=== PATIENT | female | born 1970 | race Caucasian/White ===

== ENCOUNTER → 2020-02-22 10:06 | Outpatient (CLI) | payer BC, SELFPAY ==
--- NOTE | ~2020-02-22 | MM_ITS ---
EXAMINATION: MM screening [facility] BI w cristin HISTORY: Screening mammogram TECHNIQUE: Craniocaudal and mediolateral oblique 3-D tomosynthesis images were obtained and synthetic 2-D images were generated. CAD analysis was submitted and interpreted. COMPARISON: 11/27/2018, 08/13/2017, 07/29/2017, 07/20/2015, 05/24/2013 BREAST PARENCHYMAL COMPOSITION: The breasts are extremely dense, which lowers the sensitivity of mamm ography. FINDINGS: Scattered benign-appearing calcifications are present. There is no evidence of suspicious m ass, calcification, or architectural distortion to suggest malignancy in either breast. There has bee n no suspicious interval change. IMPRESSION: 1. No mammographic evidence of malignancy. 2. Recommend routine screening mammography in one year. BI-RADS Category 2: Benign finding(s). Reviewed, dictated and finalized at location A.
== END ==
PROVIDERS: Visit Provider Obstetrics & Gynecology
DX: Z12.31 Encounter for screening mammogram for malignant neoplasm of breast (principal)
CPT/HCPCS: 77063; 77067

== ENCOUNTER → 2021-03-29 13:14 | Outpatient (CLI) | payer BC, SELFPAY ==
--- NOTE | ~2021-03-29 | MM_ITS ---
EXAMINATION: MM screening [facility] BI w cristin HISTORY: Screening mammogram TECHNIQUE: Craniocaudal and mediolateral oblique 3-D tomosynthesis images were obtained and synthetic 2-D images were generated. CAD analysis was submitted and interpreted. COMPARISON: 02/22/2020, 11/27/2018, 08/13/2017 BREAST PARENCHYMAL COMPOSITION: The breasts are extremely dense, which lowers the sensitivity of mamm ography. FINDINGS: Scattered benign-appearing calcifications are present. There is no evidence of suspicious m ass, calcification, or architectural distortion to suggest malignancy in either breast. There has bee n no suspicious interval change. IMPRESSION: 1. No mammographic evidence of malignancy. 2. Recommend routine screening mammography in one year. BI-RADS Category 2: Benign finding(s). Reviewed, dictated and finalized at location A.
== END ==
PROVIDERS: Visit Provider Obstetrics & Gynecology
DX: Z12.31 Encounter for screening mammogram for malignant neoplasm of breast (principal)
CPT/HCPCS: 77063; 77067

== ENCOUNTER → 2021-05-01 11:46 | Outpatient (CLI) | payer BC, SELFPAY ==
--- NOTE | ~2021-05-01 | XR_ITS ---
XR chest 2V 05/01/2021 12:03 Indication: Pneumonia Procedure: 2 view chest Comparison: 10/03/2012 Findings: There are infiltrates of the right mid and lower lung zone. Heart size normal. No significa nt effusion, edema or pneumothorax. The lungs are hyperinflated which is consistent with, but not shabnam gnostic of chronic obstructive pulmonary disease. Impression: 1: Infiltrates of the right mid and lower lung zone, compatible with pneumonia. Reviewed, dictated and finalized at location A. Impression: 1: Infiltrates of the right mid and lower lung zone, compatible with pneumonia.
== END ==
PROVIDERS: PCP Internal Medicine; Visit Provider Internal Medicine
DX: J18.9 Pneumonia, unspecified organism (principal)
CPT/HCPCS: 71046

== ENCOUNTER 2021-10-04 12:46 | Outpatient (CLI) | payer BC, SELFPAY ==
--- NOTE | ~2021-10-04 | US_ITS ---
EXAMINATION: US pelvic complete w TV DATE: 10/04/2021 13:22 INDICATION: Uterus enlargement. Comparison: No prior studies for comparison. TECHNIQUE: Multiple transabdominal and endovaginal sonographic images of the pelvis performed. FINDINGS: The uterus measures 7.9 x 5.6 x 5.1 cm. The endometrial complex is not well delineated, alt saadia appears thickened measuring 1.7 cm. The ovaries are not visualized. There is free fluid in the pelvis. There are no abnormal masses seen on either side. IMPRESSION: 1. Heterogeneous uterus with mild endometrial thickening measuring 1.7 cm. Reviewed, dictated and finalized at location B. 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
== END 2021-10-04 12:47 | disposition home or self-care (01) ==
LOC: ANHIMG 12:50
PROVIDERS: PCP Internal Medicine; Visit Provider Obstetrics & Gynecology
DX: N85.8 Other specified noninflammatory disorders of uterus (principal)
CPT/HCPCS: 76830; 76856

== ENCOUNTER 2021-12-24 11:46 | Emergency (ER) | payer BC, SELFPAY ==
--- NOTE | 2021-12-19 10:31 | SUR.PREOP ---
Report to the Outpatient Waiting Room, entrance under the green pavilion located off [facility], at time 0830 on date 12/24/21. OR Time: 1030. - You and your visitor will be asked a series of questions to screen for COVID 19 for your protection. - Only one visitor is allowed at this time. - The patient visitor is requested to leave or wait in car when not with patient. - A mask is required within the hospital. Patients may have clear liquids (water, carbonated beverages, clear teas, apple juice) until 3 hours prior to surgery with a maximum of 20 ounces. - NO CLEAR LIQUIDS AFTER 0730 - No food from midnight until time of surgery - Infants may have breast milk until 4 hours before surgery, infant formula 6 hours prior to surgery. - Children will be allowed to drink immediately following surgery. If applicable, please bring a bottle or sippy cup to assist with drinking. Juice, water, soda, and popsicles are readily available. For infants on formula, please bring formula the day of surgery. Pacifiers are allowed. Take the following medications with a SIP of water the morning of surgery: BRING ALBUTEROL INHALER WITH YOU DAY OF SURGERY Medications to discontinue per physician Date to take last dose Please no make-up, nail ivorian, hairspray, perfume, deodorant, or body powder the day of surgery. No jewelry (including any body piercings) or valuables the day of surgery, leave them at home. Please take a shower or bath the night before, or the morning of, surgery with an antibacterial soap. Wear comfortable, loose fitting clothing. Children are encouraged to wear pajamas. - Jewelry must be removed prior to entering the operating room. Rings and piercings that are not removed may be cut off. - The hospital will not accept responsibility for valuables. - Please leave all valuables, including medications, at home the day of surgery. If you are going home after surgery, a licensed hydraulic lift driver must drive you home. - NO public transportation without another adult. - We recommend that an adult stay with you for 24 hours following discharge. - We also recommend that you do not drive, make important decision, drink alcoholic beverages, or take any drugs that were not prescribed by your health care provider for at least 24 hours after your discharge time. For Pediatric surgeries, we recommend two adults accompany the child home (only one inside the building at this time). Follow any additional instructions given to you from your surgeon. If you or anyone in your household have experienced Covid symptoms in the past week, please notify your surgeon or the nurse liaison at the phone number below for possible testing. Telephone instructions given to ERICK GOMEZ and asked if any additional questions and then verbalized understanding. Patient advised to call surgeon office or pre surgery nurse liaison [phone] if any additional questions. FAX EKG RESULTS TO [facility] [phone]
[2021-12-19 10:46] VITALS: BMI 20.6
[2021-12-24] VITALS (24 sets, daily range): BP systolic 117–153; BP diastolic 57–85; PULSE 43–64; RESP 12–21; TEMP 36–36.3; O2SAT 98–100; BMI 20.6
--- NOTE | ~2021-12-24 | CT_ITS ---
EXAMINATION: CT brain wo con DATE: 12/24/2021 11:51 INDICATION: Cerebrovascular accident. Right facial weakness. TECHNIQUE: Computed tomography (CT) of the head was performed without intravenous contrast. The mA wa s adjusted according to patient size. Iterative reconstruction technique was employed. The dose-lengt h product was 1210.67 mGy-cm. COMPARISON: Head CT 03/13/2018 FINDINGS: There is mild motion artifact. There is no intracranial hemorrhage, acute infarction, or ab normal intracranial mass lesion. The ventricles are normal in size. The paranasal sinuses are clear. The orbits are normal. The mastoid air cells are normal. IMPRESSION: 1. Normal brain. Sensitivity is mildly decreased by motion artifact. I called this result to Dr. Kamron vallejo. Reviewed, dictated and finalized at location B. IMPRESSION: 1. Normal brain. Sensitivity is mildly decreased by motion artifact. I called t his result to Dr. Lee.
--- NOTE | 2021-12-24 09:06 | WPDANESEPPF ---
Anes - Initial Pre Proc Eval Procedure: Operation Date: 12/24/21 10:30 Proposed Procedures p Hysteroscopy with Dilation and Curettage - Abena Morataya MD Date/Time: 12/24/21 09:06 Surgeon: Abena Morataya MD Pre Op Diagnosis: Endometrial Hyperplasia Patient Data Age: 51 Gender: F Height: 1.63 m Weight: 54.5 kg Allergies Allergy/AdvReac Type Severity Reaction Status Date / Time desogestrel-ethinyl estradiol Allergy Severe Rash Verified 12/19/21 10:44 [From Mircette (28)] ethinyl estradiol Allergy Severe Rash Verified 12/19/21 10:44 [From Mircette (28)] phenytoin [From Dilantin] Allergy Severe Rash Verified 12/19/21 10:18 Home Medications Medication Instructions Recorded Confirmed Type estradiol-norethindrone acet 0.5 1 tablet PO DAILY #28 tablet 10/02/21 12/19/21 Rx mg-0.1 mg tablet losartan 25 mg tablet 25 mg PO DAILY 10/02/21 12/19/21 History mecobalamin (vitamin B12) 1,000 1,000 mcg SUBLINGUAL DAILY 10/02/21 12/19/21 History mcg disintegrating tablet,sublingual albuterol sulfate 2 puff INHALATION PRN PRN 12/19/21 12/19/21 History Patient hx anesthesia problems: none Family hx anesthesia problems: none Results Review: All pre-operative results and documents have been reviewed as part of the pre-operative evaluation. [facility] Past Medical History Medical History Bilateral breast cysts Fibroids Hx TIA/stroke w/o resid Hypertension Trigeminal neuropathy Surgical History Surgical History Delivery by section xs 3 History of back surgery History of dilation and curettage Family History Family History Other Cerebrovascular accident Heart disease Hypertension Leukemia Social History Social History Smoking status: Never smoker Alcohol intake: never Substance use: never Substance use type: does not use Living arrangements: with family Gender identity (if verbalized by the patient): Female Spiritual care concerns: No Anes - Eval Final PreProcedure Day of Procedure 12/24/21 09:06 Patient weight: normal Heart: regular rate and rhythm Lungs: clear to auscultation and normal air movement Airway: Mallampati scale class II Neurological: alert and oriented Last oral intake: >/= 8 hours ASA classification: III Emergent: no Anesthetic plan: proceed Anesthesia type and monitoring: general GIVS and LMA Results Review: All pre-operative results and documents have been reviewed as part of the pre-operative evaluation. Informed Consent: The patient's anesthetic plan and its attendant risks and benefits were discussed with the patient/family/POA. Questions were solicited and answers provided to the satisfaction of the patient/family/POA.
[2021-12-24] MEDS: LACTATED RINGERS 1,000 ML 30 ML IV CONT (09:30)
[2021-12-24] MEDS: ACETAMINOPHEN 500 MG TABLET 1000 MG PO (09:35)
--- NOTE | 2021-12-24 10:10 | PM.IMHP ---
H&P: HPI History of Present Illness Date/Time: 12/24/21 10:00 Anju is a 51yo P2112 who presents for surgery. She was last seen in Sep 2021 for WWE; normal pap 2019. She has complex pain syndrome and has been weaning off all her meds starting 08/2020. She would like to stay on the lowest amount of estrogen as she's afraid that will make her pain worse. She does have a h/o TIA and understands the risks. She had been weaned down to lo loestrin. She had not had a cycle in many months; had a normal cycle in Jul. Did have COVID infection (moderate to severe symptoms causing arrhythmia). She is not sexually active. No breast issues. On exam, she was found to have significant RLQ pain and US revealed thickened endometrial lining of 1.7cm. On pelvic exam, she was also found to have a polyp with thick stalk. She has been counseled on need for HSC, D&C and polypectomy. Chief Complaint: endocervical polyp Review of Systems Review of Systems: All systems reviewed & are unremarkable except as noted in HPI and below (HPI) [facility] Past Medical History Medical History Bilateral breast cysts Fibroids Hx TIA/stroke w/o resid Hypertension Trigeminal neuropathy Surgical History Surgical History Delivery by section xs 3 History of back surgery History of dilation and curettage Family History Family History Other Cerebrovascular accident Heart disease Hypertension Leukemia Social History Social History Smoking status: Never smoker Alcohol intake: never Substance use: never Substance use type: does not use Living arrangements: with family Gender identity (if verbalized by the patient): Female Spiritual care concerns: No Meds Home Medications and Allergies Home Medications Medication Instructions Recorded Confirmed Type estradiol-norethindrone acet 0.5 1 tablet PO DAILY #28 tablet 10/02/21 12/19/21 Rx mg-0.1 mg tablet losartan 25 mg tablet 25 mg PO DAILY 10/02/21 12/19/21 History mecobalamin (vitamin B12) 1,000 1,000 mcg SUBLINGUAL DAILY 10/02/21 12/19/21 History mcg disintegrating tablet,sublingual albuterol sulfate 2 puff INHALATION PRN PRN 12/19/21 12/19/21 History Allergies Allergy/AdvReac Type Severity Reaction Status Date / Time desogestrel-ethinyl estradiol Allergy Severe Rash Verified 12/24/21 09:52 [From Damon (28)] ethinyl estradiol Allergy Severe Rash Verified 12/24/21 09:52 [From Eddiee (28)] phenytoin [From Dilantin] Allergy Severe Rash Verified 12/24/21 09:52 STEROID Allergy Rash Uncoded 12/24/21 10:01 Exam Const: General: cooperative, healthy appearing, comfortable and no acute distress Resp: Effort & Inspection: normal respiratory effort Cardio: Rate: regular rate GI: Inspection: normal to inspection GI Palp: Yes Soft to palpation and No Tenderness to palpation present (GI) : Other: deferred to OR; polyp with thick stalk noted on exam in clinic Skin: General skin exam: normal color Neuro: General: patient oriented x3 Psych: Appearance: grossly normal Assessment and Plan Assessment and plan (1) Endocervical polyp: Code(s): N84.1 - Polyp of cervix uteri Status: Acute (2) Endometrial thickening on ultrasound: Code(s): R93.89 - Abnormal findings on diagnostic imaging of other specified body structures Status: Acute Additional Plan - Proceed with hysteroscopy, dilation and curettage, with polypectomy - Risks and benefits explained in detail and all questions answered
--- NOTE | 2021-12-24 10:10 | WPDHPUPDATE1 ---
History and Physical Update Update Date/Time: 12/24/21 10:10 History and Physical has been reviewed, including an updated exam of the patient. There are NO changes in the patient's condition. Risks, benefits, and alternatives have been discussed and questions answered. Patient agrees to proceed with procedure.
--- NOTE | 2021-12-24 10:55 | PM.OP ---
Procedure Note - Brief Procedure Note - Brief Date of procedure: 12/24/21 Pre-op diagnosis: Thickened endometrium Endocervical polyp Post-op diagnosis: Same Procedure performed: Hysteroscopy, dilation and curettage with polypectomy Description of procedure: On the was taken operating room where she was placed under anesthesia without complications. She was then prepped and draped in the usual sterile fashion in the dorsal lithotomy position. A time-out was performed no preoperative antibiotics were indicated. A bivalve speculum was placed within the vagina where the cervix was easily identified, as well as the 2 cm endocervical polyp. Using ring forceps and grasped the polyp and twisted on its stock, where portion of the polyp was removed. The uterus was then sounded to _ cm. The cervix was then serially dilated to allow for the hysteroscope. The hysteroscope was advanced into the uterine cavity where the bilateral tubal ostia were visualized, as well as slightly thickened endometrium. No other abnormalities were noted. The hysteroscope was removed moved. A small portion of the endocervical polyp remained therefore using an endocervical curettage it was removed. A gentle curettage of the endometrial cavity was then performed with an adequate sample obtained. Good hemostasis was noted. All instruments were removed from the vagina. Patient was awoken from anesthesia and taken recovery in a stable condition with plans of same-day discharge home. Anesthesia: MAC Surgeon: Abena Morataya MD Estimated blood loss (mL): 20 Pathology: Yes Complications: No immediate complications Condition: Stable Disposition: Same day
--- NOTE | 2021-12-24 11:02 | W.PM.PROC2 ---
Procedure Note - Detailed Date of Procedure 12/24/21 Pre-op Diagnosis Thickened endometrium Endocervical polyp Post-op Diagnosis Same Procedure Performed Hysteroscopy with dilation, curettage and polypectomy Surgeon Abena Morataya MD Anesthesia MAC Indications Anju is a 51yo P2112 who presented for WWE in Sep where an endocervical polyp was noted. On exam, she was very tender and US was performed, showing an endometrial strip of 1.7cm. She had not had a cycle in 9-10 months. Findings Uterus 8cm, slightly thickened endometrium, bilateral tubal ostia visualized. Endocervical polyp 2cm in size, removed. Good hemostasis at end of case. Description of Procedure Anju was taken to the operating room where she was placed under anesthesia without complications. She was then prepped and draped in the usual sterile fashion in the dorsal lithotomy position. A time-out was performed and no preoperative antibiotics were indicated. A bivalve speculum was placed within the vagina where the cervix was easily identified, as well as the 2 cm endocervical polyp. Using ring forceps, I grasped the polyp and twisted on its stock, where a portion of the polyp was removed. The uterus was then sounded to 8cm. The cervix was then serially dilated to allow for the hysteroscope. The hysteroscope was advanced into the uterine cavity where the bilateral tubal ostia were visualized, as well as slightly thickened endometrium. No other abnormalities were noted. The hysteroscope was removed moved. A small portion of the endocervical polyp remained, therefore using an endocervical curettage it was removed. A gentle curettage of the endometrial cavity was then performed with an adequate sample obtained. Good hemostasis was noted. All instruments were removed from the vagina. Patient was awoken from anesthesia and taken recovery in a stable condition with plans of same-day discharge home. Estimated Blood Loss 20 Pathology Yes Complications No immediate complications Condition Stable Disposition Same day [facility] Billing Surgery - Charge Forward: Surgery Billing
--- NOTE | 2021-12-24 11:50 | PC.NURSE ---
Report received from Dr. Perla, anesthesiologist. Per provider, this pt last known well was at 1135. Provider states this pt became nonverbal post op. Per provider, PHP CONSULTANT reports pt had gone from speaking in full sentences to completely somnolent. Per provider, pt had woken up fully from anesthesia and up for discharge after her D&C prior to this event. Code stroke called overhead in ED and pt taken to CT promptly.
[2021-12-24 11:57] LABS: Glucose Point of Care 65 mg/dl (65-105)
--- NOTE | 2021-12-24 12:07 | PC.NURSE ---
re ck BS following amp of d50 is 138
[2021-12-24 12:10] LABS: Glucose Point of Care 138 mg/dl (65-105)
[2021-12-24] MEDS: DEXTROSE 50% 25 GM/50 ML SYRINGE (12:10)
--- NOTE | 2021-12-24 12:10 | SUR.PHASEII ---
@1120 PATIENT WAKING UP IN STRETCHER, ANSWERING QUESTIONS APPROPRIATELY. RATING CRAMPING AT 7/10, NO NAUSEA, SLIGHTLY LIGHTHEADED WHEN SITTING AT EDGE OF STRETCHER. STOOD AND TRANSFERRED TO RECLINER WITH NO ISSUES. DENIED DRINK OR CRACKERS. AFTER SITTING IN RECLINER FOR A FEW MINUTES PATIENT STATED SHE FELT FUNNY AND BEGAN TO HAVE ABNORMAL FACIAL MOVEMENTS, EYES CLOSED OR ROLLING BACK, NON RESPONSIVE TO QUESTIONS OR COMMANDS. @[address] LITTLE NOTIFIED @1137 HIRED HAND CONTACTED, CODE STROKE @1142 NOTIFIED PATIENT TRANSPORTED TO CT @1153 UPDATED AND GOING TO ER TO WAIT FOR PATIENT AFTER CT @1201 DR GROSS NOTIFIED VIA VOICEMAIL TO CELL PHONE OF UPDATE IN PATIENT CONDITION AND CURRENT PLAN @[address] GROSS VIA TELEPHONE @1210 PATIENT BELONGINGS TAKEN TO ER
[2021-12-24] MEDS: LORazepam INJ (*CRX) 2 MG/ML VIAL (12:11)
--- NOTE | 2021-12-24 13:23 | ECG_ITS ---
Measurements Intervals [place] Rate: 73 P: 83 AR: 154 QRS: 54 QRSD: 86 T: 45 QT: 405 QTc: 449 Interpretive Statements SINUS RHYTHM BASELINE ARTIFACT- I, II, III, AVR, AVL, AVF, V1-V6 NORMAL ECG Electronically Signed On 12-24-2021 13:25:21 CDT by Reji Arredondo D.O.
--- NOTE | 2021-12-24 13:48 | PC.NURSE ---
called lab and let them know that orders had been put in for this patient. Blood tubes were sent down with blank labels during pt. seizure. Spoke to Ekta who said they would run them at 1347.
[2021-12-24 13:55] LABS: Basophils Percent Auto 0.6 % (0.2-1.2); Eosinophils Absolute Auto 0.1 K/mm3 (0-0.3); Eosinophils Percent Auto 1.2 % (0-4.4); Hematocrit 39.9 % (37.0-47.0); Hemoglobin 13.5 g/dL (12.0-15.0); Immature Granulocyte Absolute 0.01 K/mm3 (0.00-0.031); Immature Granulocyte Percent A 0.2 % (0-0.5); Lymphocytes Absolute Auto 1.55 K/mm3 (0.9-3.2); Lymphocytes Percent Auto 31.8 % (18.3-44.2); Mean Corpuscular HGB Conc 33.8 g/dl (32-36); Mean Corpuscular Hemoglobin 33.1 pg (26-34); Mean Corpuscular Volume 97.8 fl (80-100); Mean Platelet Volume 10.3 fl (7.4-10.4); Monocytes Absolute Auto 0.6 K/mm3 (0.1-0.6); Monocytes Percent Auto 11.5 % (2.6-8.5); Neutrophils Absolute Auto 2.7 K/mm3 (1.3-6.7); Neutrophils Percent Auto 54.7 % (45.5-73.1); Platelet Count Result 193 k/mm3 (150-375); Red Blood Count 4.08 M/mm3 (4.2-5.4); Red Cell Distribution Width 11.6 % (11.5-14.5); White Blood Count 4.9 K/mm3 (4.5-10.0)
[2021-12-24 13:57] LABS: Alanine Aminotransferase 35 U/L (6-35); Albumin Level 4.3 g/dL (3.5-5.1); Alkaline Phosphatase 75 U/L (38-126); Anion Gap 6 mmol/L (8-16); Aspartate Amino Transferase 44 U/L (14-36); Bilirubin,Total 0.5 mg/dL (0.2-1.3); Blood Urea Nitrogen 16 mg/dL (7-17); Carbon Dioxide 27 mmol/L (22-30); Chloride 104 mmol/L (98-107); Estimated CRCL calculation 73 ml/min; Estimated Glomerular Filt Rate > 60; Glucose 162 mg/dL (65-110); Potassium 4.5 mmol/L (3.4-5.0); Sodium 137 mmol/L (137-145)
[2021-12-24 14:14] LABS: Appearance Urine Clear (Clear); Bilirubin Urine Negative (Negative); Blood Urine 3+ (Negative); Glucose Urine UA Trace mg/dL (Negative); Ketones Urine Negative (Negative); Leukocyte Esterase Ur Negative LEU/UL (Negative); Nitrate Urine Negative (Negative); Protein Urine 1+ mg/dL (Negative); Specific Grav Ur 1.015 (1.001-1.035); Urobilinogen Urine 0.2 mg/dL (<2.0)
[2021-12-24 14:17] LABS: Add Urine Microscopic? YES; Color Urine Light Yellow (Yellow)
--- NOTE | 2021-12-24 14:27 | ED.SEIZURE ---
HPI - Seizure General Chief Complaint: Seizure Time Seen by Provider: 12/24/21 11:52 Source: patient, family, RN notes reviewed and other History of Present Illness HPI Narrative: Patient presents as a code stroke from OB. Patient was getting a D&C done today procedure went well she got propofol Versed and fentanyl. After returning to the PACU patient reports she started feeling well and then she was altered and unresponsive. The procedure team was concerned and called a code stroke and transferred to the ER for further evaluation. Family presented and reports she does have a history of seizure-like activity after surgeries and this event is not unusual for her. Reports she usually recovers after a couple hours and they are able to be discharged home. Seizure History: Yes (2010- NOT ON MEDICATION NOW) Related Data Home Medications Medication Instructions Recorded Confirmed losartan 25 mg tablet 25 mg PO DAILY 10/02/21 12/19/21 mecobalamin (vitamin B12) 1,000 1,000 mcg SUBLINGUAL DAILY 10/02/21 12/19/21 mcg disintegrating tablet,sublingual albuterol sulfate 2 puff INHALATION PRN PRN 12/19/21 12/19/21 Allergies Allergy/AdvReac Type Severity Reaction Status Date / Time desogestrel-ethinyl estradiol Allergy Severe Rash Verified 12/24/21 09:52 [From Damon (28)] ethinyl estradiol Allergy Severe Rash Verified 12/24/21 09:52 [From Mircette (28)] phenytoin [From Dilantin] Allergy Severe Rash Verified 12/24/21 09:52 STEROID Allergy Rash Uncoded 12/24/21 10:01 Review of Systems Review of Systems: CONSTITUTIONAL: Denies fever, chills, or sweats. EYES: Denies visual changes, redness, or discharge. ENT: Denies rhinorrhea, congestion, sore throat, or otalgia. CARDIOVASCULAR: Denies chest pain, palpitations, or edema. RESPIRATORY: Denies cough or dyspnea. GASTROINTESTINAL: Denies abdominal pain, nausea, vomiting, or diarrhea. GENITOURINARY: Denies dysuria or hematuria. SKIN: Denies rash or itching. MUSCULOSKELETAL: Denies back pain, joint pain, or myalgia. NEUROLOGIC: Denies headache, numbness, dizziness, or weakness. PSYCHIATRIC: Denies anxiety or depression. All systems reviewed & are unremarkable except as noted in HPI and below ROS unobtainable: Yes other (Review of systems was obtained when mental status improved) PMFSH Past Medical History Medical History Bilateral breast cysts Fibroids Hx TIA/stroke w/o resid Hypertension Trigeminal neuropathy Surgical History Surgical History Delivery by section xs 3 History of back surgery History of dilation and curettage Family History Family History Other Cerebrovascular accident Heart disease Hypertension Leukemia Social History Social History Smoking status: Never smoker Alcohol intake: never Substance use: never Substance use type: does not use Gender identity (if verbalized by the patient): Female Spiritual care concerns: No Exam Narrative: GENERAL: Well-appearing, well-nourished. Not responding to verbal stimuli HEAD: Normocephalic, atraumatic. EYES: PERRLA and EOMI. ENT: Nares clear, no rhinorrhea or epistaxis. Mucous membranes moist. NECK: Supple. No masses. No JVD CHEST: Clear to auscultation. No respiratory distress. No wheezes rales or rhonchi HEART: Regular rate and rhythm. No murmur heard. Normal peripheral pulses. ABDOMEN: Soft, nontender, nondistended, normal active bowel sounds. EXTREMITIES: Repetitive movement of all extremities SKIN: Warm, dry, no rash. NEURO: Responsive to noxious stimuli patient does localize to noxious stimuli Course Reevaluation(s) Reevaluation #1: Patient is back to baseline has no complaints results and plan reviewed with patient. Patient is comfortable outp
== END 2021-12-24 15:09 | disposition home or self-care (01) ==
LOC: ANHED 11:46
PROVIDERS: Emergency Provider Emergency Medicine; PCP Internal Medicine; Visit Provider Obstetrics & Gynecology
PROC: 0U5B8ZZ Destruction of Endometrium, Via Natural or Artificial Opening Endoscopic (ICD-10-PCS; CPT 58563; principal; 2021-12-24 10:30)
DX: N84.1 Polyp of cervix uteri (principal); R40.4 Transient alteration of awareness; T81.89XA Other complications of procedures, not elsewhere classified, initial encounter; Y83.8 Other surgical procedures as the cause of abnormal reaction of the patient, or of later complication, without mention of misadventure at the time of the procedure; I10 Essential (primary) hypertension; G50.0 Trigeminal neuralgia; Z86.73 Personal history of transient ischemic attack (TIA), and cerebral infarction without residual deficits; Z79.51 Long term (current) use of inhaled steroids
CPT/HCPCS: 58558; 36415; 70450; 80053; 81001; 82948; 85025; 87086; 88305; 93005; 99284; A9270; J0461; J2060; J2250; J2704; J3010; J7030; J7120

== ENCOUNTER → 2023-07-08 14:12 | Outpatient (CLI) | payer OTHER, SELFPAY ==
--- NOTE | ~2023-07-08 | DEXA_ITS ---
Bone Density Report Name: ERICK GOMEZ Age: 53 Sex: Female Ethnicity: White Date of : 1970 Indication: postmenopausal; screening for osteoporosis; prior fracture; Referring Provider: Nahid, Lalito Study: Bone densitometry was performed. Exam Date: July 08, 2023 Accession number: [id number] Bone Density: Region BMD T-score Z-score Classification AP Spine (L1-L4) 0.758 -2.6 -1.6 Osteoporosis Femoral Neck (Left) 0.646 -1.8 -0.8 Osteopenia Total Hip (Left) 0.729 -1.7 -1.1 Osteopenia Femoral Neck (Right) 0.690 -1.4 -0.4 Osteopenia Total Hip (Right) 0.768 -1.4 -0.8 Osteopenia Total Hip Mean 0.749 -1.6 -1.0 Osteopenia World Health Organization criteria for BMD impression classify patients as: Normal (T-score at or above -1.0), Osteopenia (T-score between -1.0 and -2.5), or Osteoporosis (T-score at or below -2.5). 10-year Fracture Risk: FRAX not reported because: Some T-score for Spine Total or Hip Total or Femoral Neck at or below -2.5 Clinical Information Provided by Patient: Has had a low trauma fracture Has used the following medications: Vitamin D, Calcium Patient maximum height was 66.25 Menopause Age: 50 Does not regularly consume dairy products Onset of menses at age 17 Number of children 3 Impression: The patient has established osteoporosis, based on the Total Spine T-score and the existence of a prior fracture. The patient has risk factors, including: previous fracture. Discussion: HIGH RISK OF FRACTURE. BONE DENSITY IS UNDESIRABLY LOW AT ONE OR MORE SKELETAL SITES, CONSISTENT WITH POSTMENOPAUSAL OSTEOPOROSIS. This patient's lowest T-score, in a patient who has previously fractured, meets the World Health Organization's (WHO) criteria for severe osteoporosis. In untreated patients, the risk of osteoporotic fracture increases approximately two-fold for each 1.0 SD decrease in T-score. Low bone density is not the only risk factor for fracture; also consider factors such as patient's age, frailty or poor health, risk of falling, risk of injury, previous osteoporotic fracture, family history of osteoporosis, cigarette smoking, low body weight, etc. Not everyone with low bone mineral density has osteoporosis; osteomalacia and other metabolic bone disorders should also be considered. Patients who have osteoporosis should be evaluated for specific diseases and conditions (secondary causes) that may cause or contribute to bone loss. The [place] [employer] Endocrinologists (AACE) and National Osteoporosis Foundation (NOF) recommend pharmacologic intervention for all postmenopausal women whose T-score is in this range. The patient should follow a healthful lifestyle (good nutrition with adequate calcium and vitamin D, and appropriate weight-bearing exercise). Follow-Up: Consider a repeat BMD
== END ==
PROVIDERS: PCP Internal Medicine; Visit Provider Internal Medicine
DX: M81.0 Age-related osteoporosis without current pathological fracture (principal); Z82.62 Family history of osteoporosis
CPT/HCPCS: 77080

== ENCOUNTER 2023-07-14 15:02 | Inpatient (IN) | payer OTHER, SELFPAY ==
[2023-07-14] VITALS (37 sets, daily range): BP systolic 103–169; BP diastolic 37–80; PULSE 48–91; RESP 14–35; TEMP 35.8–36.7; O2SAT 100; BMI 19.9
--- NOTE | ~2023-07-14 | XR_ITS ---
XR abdomen gastric tube insert INDICATION: Evaluate NG tube position. TECHNIQUE: Limited KUB perform for evaluating NG tube . COMPARISON: No prior studies for comparison. FINDINGS: NG tube tip in the distal esophagus. Recommend advancement. Visualized bowel gas pattern is unremarkable. IMPRESSION: 1: NG tube tip in the distal esophagus. Recommend advancement. Reviewed, dictated and finalized at location B. IFIED LACTATION EDUCATOR
--- NOTE | ~2023-07-14 | US_ITS ---
US abdomen limited INDICATION: Abdominal pain PROCEDURE: Realtime right upper abdominal ultrasound. COMPARISON: No prior studies for comparison. FINDINGS: The pancreas is normal without focal mass or pancreatic ductal dilation. Liver echotexture is normal without focal mass or intrahepatic biliary dilatation. There is normal directional flow i n the portal vein. The gallbladder is normal without stones, gallbladder wall thickening or pericholecystic fluid. Comm on bile duct measures 3 mm. No sonographic Browne's sign. IMPRESSION: 1: Normal limited abdominal ultrasound. Reviewed, dictated and finalized at location B. [employer]
--- NOTE | ~2023-07-14 | XR_ITS ---
Portable chest x-ray Comparison: 07/14/2023 Clinical History: Intubation Findings: Endotracheal tube and NG tube are in satisfactory positions. Lungs are clear, without foca l consolidation or pleural effusion. Cardiomediastinal silhouette is stable. Bones and soft tissues are unremarkable. Impression: Clear lungs. Stable support tubes. Reviewed, dictated and finalized at location . TER ENGINEERING Impression: Clear lungs. Stable support tubes.
--- NOTE | ~2023-07-14 | XR_ITS ---
XR chest ET placement 07/14/2023 15:40 Indication: Confirm endotracheal tube placement. Procedure: AP portable chest Comparison: 05/01/2021 Findings: Heart size normal. Endotracheal tube tip 1 cm above the carmen. Recommend retraction. Heart size normal. Prominent right nipple shadow right lower thorax. No focal air space disease, pulmonary edema, pleural effusion or suspected pneumothorax. No acute osseous abnormality. Impression: 1: No acute cardiopulmonary disease. Reviewed, dictated and finalized at location B. ESS BED DRUM SANDER Impression: 1: No acute cardiopulmonary disease.
--- NOTE | ~2023-07-14 | CT_ITS ---
EXAMINATION: CT brain wo con DATE: 07/14/2023 16:09 INDICATION: Altered mental status. Found down. TECHNIQUE: Computed tomography (CT) of the head was performed without intravenous contrast. Sagittal and coronal reconstructions were performed. The mA was adjusted according to patient size. Iterative reconstruction technique was employed. The dose-length product was 605.33 mGy-cm. COMPARISON: head CT dated 12/24/2021 FINDINGS: No acute intracranial hemorrhage, acute infarction or abnormal extra axial fluid collection. Ventricl es are normal and symmetric. No mass/mass effect. The orbits, paranasal sinuses and mastoid air cells are normal. IMPRESSION: 1. Normal head CT. Reviewed, dictated and finalized at location A. OL OCCUPATIONAL THERAPIST IMPRESSION: 1. Normal head CT.
[2023-07-14] MEDS: NALOXONE HCL 0.4 MG/ML VIAL IV PUSH (15:10)
--- NOTE | 2023-07-14 15:24 | ECG_ITS ---
Measurements Intervals [place] Rate: 73 P: 84 PA: 152 QRS: 70 QRSD: 93 T: 36 QT: 408 QTc: 452 Interpretive Statements SINUS RHYTHM NONSPECIFIC ST SEGMENT ABNORMALITY BORDERLINE ECG COMPARED TO ECG 12/24/2021 12:00:[address] SEGMENT ABNORMALITY APPEARS TO BE PRESENT Electronically Signed On 07-14-2023 16:31:44 PROJECT CONTROLLER by Salvador Hickman M.D.
[2023-07-14 15:25] LABS: Glucose Point of Care 166 mg/dl (65-105)
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
[2023-07-14 15:52] LABS: Alveolar/Arterial O2 Gradient 167.3 mmHg; Base Excess ABG -7.9 mEq/l (+/-2.0); Carboxyhemoglobin 0.1 % THb (0-2.0); Fractional Inspired Oxygen 100 %; HCO3 ABG 17.9 mEq/l (22.0-26.0); Methemoglobin ABG 0.8 %THb (0-1.5); Modified Allen's Test Pass; Oxygen Content ABG 19.6 %vol (16.0-22.0); Oxygen Saturation ABG 99.9 % (95.0-100.0); Oxyhemoglobin 98.3 % THb (90.0-100.0); PCO2 ABG 37.6 mmHg (35.0-45.0); PO2 ABG 508.1 mmHg (80.0-100.0); PO2 FiO2 Ratio Arterial Blood 5.08 %; Reduced Hemoglobin 0.8 %THb (0-5.0); Site Drawn RIGHT RADIAL; Total Hemoglobin 13.2 g/dL (12.0-18.0); pH ABG 7.295 (7.350-7.450)
[2023-07-14 15:53] LABS: Arterial Blood Gas PEEP 5 cmH2O; Arterial Blood Gas Tidal Volume 400 ml; Arterial Blood Gas Vent Mode CMV; Arterial Blood Gas Ventilator rate 16 /MIN; Device VENTILATOR
[2023-07-14 16:12] LABS: Basophils Percent Auto 0.2 % (0.2-1.2); Hematocrit 38.2 % (37.0-47.0); Hemoglobin 12.3 g/dL (12.0-15.0); Immature Granulocyte Absolute 0.08 K/mm3 (0.00-0.031); Immature Granulocyte Percent A 0.6 % (0-0.5); Lymphocytes Absolute Auto 0.56 K/mm3 (0.9-3.2); Lymphocytes Percent Auto 4.2 % (18.3-44.2); Mean Corpuscular HGB Conc 32.2 g/dl (32-36); Mean Corpuscular Hemoglobin 31.1 pg (26-34); Mean Corpuscular Volume 96.7 fl (80-100); Mean Platelet Volume 9.4 fl (7.4-10.4); Monocytes Absolute Auto 0.6 K/mm3 (0.1-0.6); Monocytes Percent Auto 4.3 % (2.6-8.5); Neutrophils Absolute Auto 12.2 K/mm3 (1.3-6.7); Neutrophils Percent Auto 90.7 % (45.5-73.1); Platelet Count Result 207 k/mm3 (150-375); Red Blood Count 3.95 M/mm3 (4.2-5.4); Red Cell Distribution Width 11.9 % (11.5-14.5); White Blood Count 13.4 K/mm3 (4.5-10.0)
[2023-07-14 16:23] LABS: Prothrombin Time 13.9 Seconds (11.1-14.7)
[2023-07-14 16:24] LABS: Partial Thromboplastin Time 24.3 SECONDS (22.3-36.8)
[2023-07-14 16:26] LABS: Alanine Aminotransferase 48 U/L (6-35); Albumin Level 4.1 g/dL (3.5-5.1); Alkaline Phosphatase 64 U/L (38-126); Anion Gap 14 mmol/L (8-16); Aspartate Amino Transferase 53 U/L (14-36); Bilirubin,Total 0.5 mg/dL (0.2-1.3); Blood Urea Nitrogen 17 mg/dL (7-17); Calcium 8.9 mg/dL (8.4-10.2); Carbon Dioxide 19 mmol/L (22-30); Chloride 104 mmol/L (98-107); Creatine Kinase 33 U/L (30-135); Estimated CRCL calculation 47 ml/min; Estimated Glomerular Filt Rate > 60; Glucose 170 mg/dL (65-110); Potassium 3.6 mmol/L (3.4-5.0); Sodium 137 mmol/L (137-145)
[2023-07-14 16:37] LABS: Troponin I 0.024 ng/mL (0.000-0.034)
[2023-07-14 16:45] LABS: Acetaminophen 187 ug/mL (10-30); Ethanol < 10 mg/dL (<10); Salicylate < 1.0 mg/dL (2-20)
[2023-07-14 16:51] LABS: Appearance Urine Clear (Clear); Bacteria Urine 3+ /hpf; Bilirubin Urine Negative (Negative); Blood Urine Negative (Negative); Color Urine Yellow (Yellow); Glucose Urine UA Negative (Negative); Ketones Urine Negative (Negative); Leukocyte Esterase Ur Negative LEU/UL (Negative); Need Manual Microscopic Reviewed; Nitrate Urine Negative (Negative); Protein Urine Trace mg/dL (Negative); Squamous Epithelial Cell Urine None seen /hpf (Few); Urobilinogen Urine 0.2 mg/dL (<2.0); WBC Urine 0-5 /hpf
[2023-07-14 16:52] LABS: Add Urine Microscopic? YES; Specific Grav Ur 1.042 (1.001-1.035)
[2023-07-14] MEDS: PROPOFOL IV EMULSION 100 ML 1.13 MG IV CONT (16:53)
[2023-07-14 16:57] LABS: Amphetamine Screen Urine Negative (Negative); Barbiturate Screen Urine Negative (Negative); Benzodiazepines Screen Urine Positive (Negative); Cannabinoid Screen Urine Negative (Negative); Cocaine Screen Urine Negative (Negative); Methadone Screen Urine Negative (Negative); Opiate Screen Urine Positive (Negative); Phencyclidine Screen Urine Negative (Negative)
--- NOTE | 2023-07-14 17:08 | PC.NURSE ---
ng tube advance down to 52 at the lip per xray order.
--- NOTE | 2023-07-14 17:17 | PC.NURSE ---
@1510 0.4mg of narcan administered iv. @1515 2mg of versed administered. @1518 1 liter of NS 0.9% administered through RIGHT 20g iv. @1518 50mg of Rocuronium administered. intubation @[address] Iglesias.
[2023-07-14] MEDS: SODIUM CHLORIDE 0.9% IV 1,000 ML 999 ML IV CONT ×2 (17:54→22:07)
[2023-07-14 19:08] LABS: Reflex Lactic Acid Yes or No Add Lactic
--- NOTE | 2023-07-14 19:15 | PC.NURSE ---
vent marked 24 at the lip.
--- NOTE | 2023-07-14 19:24 | ADMGEN ---
This patient, Anju Martinez, was admitted to Intensive Care Unit-9. Patient/family oriented to hospital policies and general routines including ID bracelet, bed and alarms, visiting hours, pain management, procedures, bathroom and other care routines, personal items, smoking policy, room service/diet, and visiting hours. Information on how to activate the Rapid Response Team has been discussed. Patient/Family are encouraged to report perceived risks to care and to ask questions if they do not understand what they are told or what they should do.
[2023-07-14 20:13] LABS: Lactic Acid 4.2 mmol/L (0.7-2.0)
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
[2023-07-14 21:58] LABS: Alveolar/Arterial O2 Gradient 58.7 mmHg; Base Excess ABG -4.1 mEq/l (+/-2.0); Carboxyhemoglobin 0.2 % THb (0-2.0); Device VENTILATOR; Fractional Inspired Oxygen 50 %; HCO3 ABG 19.3 mEq/l (22.0-26.0); Methemoglobin ABG 0.3 %THb (0-1.5); Modified Allen's Test Pass; Oxygen Content ABG 17.9 %vol (16.0-22.0); Oxygen Saturation ABG 99.6 % (95.0-100.0); Oxyhemoglobin 98.1 % THb (90.0-100.0); PCO2 ABG 30.4 mmHg (35.0-45.0); PO2 ABG 263.6 mmHg (80.0-100.0); PO2 FiO2 Ratio Arterial Blood 5.27 %; Reduced Hemoglobin 1.4 %THb (0-5.0); Site Drawn LEFT RADIAL; Total Hemoglobin 12.5 g/dL (12.0-18.0); pH ABG 7.421 (7.350-7.450)
[2023-07-14 21:59] LABS: Arterial Blood Gas PEEP 5 cmH2O; Arterial Blood Gas Tidal Volume 400 ml; Arterial Blood Gas Vent Mode CMV; Arterial Blood Gas Ventilator rate 16 /MIN
[2023-07-14 22:08] LABS: Acetaminophen 80 ug/mL (10-30); Anion Gap 8 mmol/L (8-16); Blood Urea Nitrogen 13 mg/dL (7-17); Carbon Dioxide 20 mmol/L (22-30); Chloride 106 mmol/L (98-107); Estimated CRCL calculation 76 ml/min; Estimated Glomerular Filt Rate > 60; Glucose 174 mg/dL (65-110); Magnesium 1.7 mg/dL (1.6-2.3); Potassium 4.4 mmol/L (3.4-5.0); Salicylate < 1.0 mg/dL (2-20); Sodium 134 mmol/L (137-145)
--- NOTE | 2023-07-14 22:16 | PC.NURSE ---
Poison Control notified of patient's admission at 2145. UDS positive for benzodiazepines and opiates of which patient has no prescription. Tylenol level 187. Poison control made aware of critical tox screen findings as well as current patient status. Recommend a repeat Acetaminophen level and CMP 2 hours prior to end of third bag of Acetylcysteine. Will continue to monitor.
[2023-07-14 22:19] LABS: Troponin I 0.028 ng/mL (0.000-0.034)
[2023-07-14 22:55] LABS: Hepatitis B Surface Antigen Negative (Negative)
[2023-07-14 22:58] LABS: Thyroid Stimulating Hormone Reflex 0.605 uIU/mL (0.465-4.68)
[2023-07-14 23:01] LABS: HAV RESULT Negative (Negative); Hepatitis B Core IgM Result Negative (Negative)
[2023-07-14] MEDS: SODIUM CHLORIDE 0.9% IV 1,000 ML 100 ML IV CONT (23:04)
[2023-07-14 23:41] LABS: Glucose Point of Care 174 mg/dl (65-105)
[2023-07-15] VITALS (25 sets, daily range): BP systolic 130–170; BP diastolic 55–86; PULSE 45–75; RESP 16–30; TEMP 37–37.7; O2SAT 92–100; BMI 19.9
[2023-07-15 00:13] LABS: Hepatitis C Virus Antibody Negative (Negative)
[2023-07-15 04:43] LABS: Basophils Percent Auto 0.2 % (0.2-1.2); Eosinophils Percent Auto 0.1 % (0-4.4); Hematocrit 35.9 % (37.0-47.0); Hemoglobin 11.7 g/dL (12.0-15.0); Immature Granulocyte Absolute 0.03 K/mm3 (0.00-0.031); Immature Granulocyte Percent A 0.3 % (0-0.5); Lymphocytes Absolute Auto 2.22 K/mm3 (0.9-3.2); Lymphocytes Percent Auto 23.7 % (18.3-44.2); Mean Corpuscular HGB Conc 32.6 g/dl (32-36); Mean Corpuscular Hemoglobin 31.3 pg (26-34); Mean Platelet Volume 9.8 fl (7.4-10.4); Monocytes Absolute Auto 0.9 K/mm3 (0.1-0.6); Monocytes Percent Auto 9.1 % (2.6-8.5); Neutrophils Absolute Auto 6.2 K/mm3 (1.3-6.7); Neutrophils Percent Auto 66.6 % (45.5-73.1); Platelet Count Result 163 k/mm3 (150-375); Red Blood Count 3.74 M/mm3 (4.2-5.4); Red Cell Distribution Width 11.8 % (11.5-14.5); White Blood Count 9.4 K/mm3 (4.5-10.0)
[2023-07-15 04:52] LABS: Alanine Aminotransferase 353 U/L (6-35); Albumin Level 3.8 g/dL (3.5-5.1); Alkaline Phosphatase 57 U/L (38-126); Anion Gap 8 mmol/L (8-16); Aspartate Amino Transferase 389 U/L (14-36); Bilirubin,Total 0.9 mg/dL (0.2-1.3); Blood Urea Nitrogen 11 mg/dL (7-17); Calcium 9.4 mg/dL (8.4-10.2); Carbon Dioxide 21 mmol/L (22-30); Chloride 108 mmol/L (98-107); Estimated CRCL calculation 76 ml/min; Estimated Glomerular Filt Rate > 60; Glucose 114 mg/dL (65-110); Magnesium 1.9 mg/dL (1.6-2.3); Potassium 3.2 mmol/L (3.4-5.0); Sodium 137 mmol/L (137-145)
[2023-07-15 04:54] LABS: Lactic Acid Reflex 1.7 mmol/L (0.7-2.0)
[2023-07-15 05:08] LABS: Alveolar/Arterial O2 Gradient 76.3 mmHg; Base Excess ABG 1.1 mEq/l (+/-2.0); Carboxyhemoglobin 0.2 % THb (0-2.0); Fractional Inspired Oxygen 40 %; Methemoglobin ABG 0.2 %THb (0-1.5); Oxygen Content ABG 17.5 %vol (16.0-22.0); Oxygen Saturation ABG 99.3 % (95.0-100.0); Oxyhemoglobin 97.8 % THb (90.0-100.0); PCO2 ABG 32.5 mmHg (35.0-45.0); PO2 ABG 171.5 mmHg (80.0-100.0); PO2 FiO2 Ratio Arterial Blood 4.29 %; Reduced Hemoglobin 1.8 %THb (0-5.0); Site Drawn RIGHT RADIAL; Total Hemoglobin 12.5 g/dL (12.0-18.0); pH ABG 7.486 (7.350-7.450)
[2023-07-15 05:09] LABS: Device VENTILATOR
[2023-07-15 05:10] LABS: Arterial Blood Gas PEEP 5 cmH2O; Arterial Blood Gas Tidal Volume 400 ml; Arterial Blood Gas Vent Mode CMV; Arterial Blood Gas Ventilator rate 400 /MIN
[2023-07-15] MEDS: PROPOFOL IV EMULSION 100 ML 11.05 MG IV CONT (05:27)
[2023-07-15] MEDS: SODIUM CHLORIDE 0.9% IV 1,000 ML 100 ML IV CONT ×2 (09:03→19:36)
[2023-07-15] MEDS: PANTOPRAZOLE SODIUM IV 40 MG VIAL IV PUSH (09:04)
[2023-07-15] MEDS: cefTRIAXone 2 GM/NS 100 ML 2 GM/100 ML BAG IVPB (09:04)
--- NOTE | 2023-07-15 13:23 | WPDCNINT ---
Assessment and Plan Assessment and plan (1) Acetaminophen overdose of undetermined intent: Code(s): T39.1X4A - Poisoning by 4-Aminophenol derivatives, undetermined, initial encounter Status: Acute Assessment and Plan: Patient with acid Ashlie no overdose, stated that she did take [place] that was old prescription -patient is suicidal -elevated acetaminophen level on admission, trending down -continue N acetyl cystine, -poison control following the patient (2) Elevated LFTs: Code(s): R79.89 - Other specified abnormal findings of blood chemistry Status: Acute Assessment and Plan: Elevated LFTs could be related to Tylenol toxicity -INR is within normal limits -creatinine is normal at 0.6 -continue to monitor liver enzymes (3) Altered mental status: Code(s): R41.82 - Altered mental status, unspecified Status: Acute Assessment and Plan: Mental status has improved (4) Respiratory failure: Code(s): J96.90 - Respiratory failure, unspecified, unspecified whether with hypoxia or hypercapnia Status: Acute Assessment and Plan: Patient was intubated due to encephalopathy, status and airway protection. -place patient on SBT this morning and successfully extubated Plan DVT prophylaxis: SCD Stress ulcer prophylaxis: Protonix Nutrition: NPO Code Status: Full Critical Care Time Spent: 46 minutes Due to a high probability of clinically significant, life threatening deterioration, the patient required my highest level of preparedness to intervene emergently and I personally spent this critical care time directly and personally managing the patient. This critical care time included obtaining a history; examining the patient; pulse oximetry; ordering and review of studies; arranging urgent treatment with development of a management plan; evaluation of patient's response to treatment; frequent reassessment; and discussions with other providers. It was exclusive of separately billable procedures and treating other patients and teaching time. Please see Assessment and Plan section and the rest of the note for further information on patient assessment and treatment This dictation may have been done utilizing a voice recognition system. Attempts have been made to correct errors. However, there may be uncorrected grammatical, spelling, and recognitions errors present. Jackscrew Man Consult Note Consult date: 07/15/23 Reason for consult: Altered mental status, acute respiratory failure, elevated Tylenol levels requiring N acetyl cystine HPI: Anjukatty Martinez is a 53 year old female with past medical history of hypertension, anxiety, history of seizures on no medication presented the ED via EMS for evaluation of altered mental status. According the records patient was found and the bathroom confused and minimally responsive. EMS was called, patient EN route to the hospital apparently had a seizure-like activity was given Versed 5 mg IV. Patient was intubated on arrival to the ED as for airway protection and minimal responsiveness. Narcan was also given with no response. CT scan of the brain did not show any acute findings. WBC count of 13.4, CO2 19, lactic 5.0, mildly elevated LFTs, acetaminophen levels works 187, salicylate was < 1. Drug screen was positive for benzos and opiates. Patient was started on N-acetylcysteine after poison control was notified and transferred to the ICU for further management Patient seen and examined the ICU, remains intubated on CMV mode of ventilation, peep of 5, 40% FiO2. Sedated with propofol infusion, patient is awake, nods to questions and follows simple commands in all extremities, denies any pain, difficulty breathing. Patient has been afebrile, adequate urine output. Tylenol level the down to 80 morning. Patient remains on N-acetylcysteine Review of Systems Review of Systems: ROS unobtainable: Yes unobtainable due to endotracheal tube and unob
[2023-07-15 13:52] LABS: Urine Cotinine NEGATIVE
[2023-07-15 14:03] LABS: Acetaminophen < 10 ug/mL (10-30); Alanine Aminotransferase 403 U/L (6-35); Albumin Level 3.5 g/dL (3.5-5.1); Alkaline Phosphatase 60 U/L (38-126); Anion Gap 6 mmol/L (8-16); Aspartate Amino Transferase 386 U/L (14-36); Bilirubin,Total 0.6 mg/dL (0.2-1.3); Blood Urea Nitrogen 7 mg/dL (7-17); Carbon Dioxide 25 mmol/L (22-30); Chloride 111 mmol/L (98-107); Estimated CRCL calculation 76 ml/min; Estimated Glomerular Filt Rate > 60; Glucose 122 mg/dL (65-110); Potassium 3.4 mmol/L (3.4-5.0); Sodium 142 mmol/L (137-145)
[2023-07-15] MEDS: POTASSIUM CHLORIDE 20 MEQ PACKET (FOR LIQUID) 40 MEQ PO (15:43)
[2023-07-16] VITALS (12 sets, daily range): BP systolic 123–171; BP diastolic 58–80; PULSE 45–67; RESP 13–22; TEMP 37–37.2; O2SAT 97–100
[2023-07-16 03:15] LABS: Basophils Absolute Auto 0.1 K/mm3 (0.0-0.1); Basophils Percent Auto 0.8 % (0.2-1.2); Eosinophils Absolute Auto 0.1 K/mm3 (0-0.3); Eosinophils Percent Auto 1.3 % (0-4.4); Hematocrit 31.6 % (37.0-47.0); Hemoglobin 10.5 g/dL (12.0-15.0); Immature Granulocyte Absolute 0.01 K/mm3 (0.00-0.031); Immature Granulocyte Percent A 0.2 % (0-0.5); Lymphocytes Absolute Auto 1.69 K/mm3 (0.9-3.2); Lymphocytes Percent Auto 26.5 % (18.3-44.2); Mean Corpuscular HGB Conc 33.2 g/dl (32-36); Mean Corpuscular Hemoglobin 31.3 pg (26-34); Mean Corpuscular Volume 94.3 fl (80-100); Mean Platelet Volume 9.4 fl (7.4-10.4); Monocytes Absolute Auto 0.5 K/mm3 (0.1-0.6); Neutrophils Percent Auto 63.2 % (45.5-73.1); Platelet Count Result 147 k/mm3 (150-375); Red Blood Count 3.35 M/mm3 (4.2-5.4); Red Cell Distribution Width 12.4 % (11.5-14.5); White Blood Count 6.4 K/mm3 (4.5-10.0)
[2023-07-16 03:31] LABS: Acetaminophen < 10 ug/mL (10-30)
[2023-07-16 03:33] LABS: Alanine Aminotransferase 308 U/L (6-35); Albumin Level 3.2 g/dL (3.5-5.1); Alkaline Phosphatase 54 U/L (38-126); Anion Gap 4 mmol/L (8-16); Aspartate Amino Transferase 198 U/L (14-36); Bilirubin,Total 0.7 mg/dL (0.2-1.3); Blood Urea Nitrogen 5 mg/dL (7-17); Calcium 8.8 mg/dL (8.4-10.2); Carbon Dioxide 26 mmol/L (22-30); Chloride 109 mmol/L (98-107); Estimated CRCL calculation 76 ml/min; Estimated Glomerular Filt Rate > 60; Glucose 107 mg/dL (65-110); Magnesium 1.7 mg/dL (1.6-2.3); Phosphorus 2.7 mg/dL (2.5-4.5); Potassium 3.5 mmol/L (3.4-5.0); Sodium 139 mmol/L (137-145)
[2023-07-16] MEDS: SODIUM CHLORIDE 0.9% IV 1,000 ML 100 ML IV CONT (03:52)
[2023-07-16] MEDS: IBUPROFEN 400 MG TABLET PO (03:52)
[2023-07-16 08:13] LABS: Lipase 61 U/L (23-300)
[2023-07-16] MEDS: ENOXAPARIN 40 MG/0.4 ML SYRINGE SUB-Q (08:22)
[2023-07-16] MEDS: POTASSIUM CHLORIDE 20 MEQ ER TABLET 40 MEQ PO (08:23)
[2023-07-16] MEDS: PANTOPRAZOLE SODIUM IV 40 MG VIAL IV PUSH (08:23)
[2023-07-16] MEDS: MAGNESIUM SULF 2 GM/WATER 50ML 2 GM/50 ML BAG IVPB (08:23)
[2023-07-16] MEDS: cefTRIAXone 2 GM/NS 100 ML 2 GM/100 ML BAG IVPB (08:24)
--- NOTE | 2023-07-16 10:09 | WPDINTPN ---
Progress Note: A&P Assessment and Plan (1) Acetaminophen overdose of undetermined intent: Code(s): T39.1X4A - Poisoning by 4-Aminophenol derivatives, undetermined, initial encounter Status: Acute Assessment and Plan: Patient with acetaminophen no overdose, stated that she did take [place] that was old prescription -patient is under suicidal precautions -elevated acetaminophen level on admission which has now trended down to undetectable -liver enzymes are improving. I will continue N acetyl cystine for another 12 hours recheck labs at 3:00 p.m.. If down trend continues will discontinue further and acetylcysteine -poison control assisting in management of the patient -psych evaluation once patient is medically stable and improved (2) Elevated LFTs: Code(s): R79.89 - Other specified abnormal findings of blood chemistry Status: Acute Assessment and Plan: Elevated LFTs could be related to Tylenol toxicity -INR is within normal limits -creatinine is normal at 0.6 -continue to monitor liver enzymes -check right upper quadrant ultrasound, check lipase (3) Altered mental status: Code(s): R41.82 - Altered mental status, unspecified Status: Acute Assessment and Plan: Mental status has improved patient is now AO x3 (4) Respiratory failure: Code(s): J96.90 - Respiratory failure, unspecified, unspecified whether with hypoxia or hypercapnia Status: Acute Assessment and Plan: Now extubated and on room air (5) UTI (urinary tract infection): Code(s): N39.0 - Urinary tract infection, site not specified Status: Acute Assessment and Plan: IV Rocephin Blood and urine cultures are pending and negative till now Plan DVT prophylaxis: SCD, Lovenox Stress ulcer prophylaxis: Protonix Nutrition: Start diet Code Status: Full Incentive spirometry, up in chair Subjective Date/time seen: 07/16/23 Overnight events reviewed. Afebrile On room air Continues to be on N-acetylcysteine infusion She overall states she feels better than yesterday but has nausea but no vomiting. She has some abdominal pain which she feels or hunger pangs as she has not had anything to eat. Denies any other complaints Patient denies fever, chest pain, shortness of breath, cough, vomiting, , diarrhea, headache or constipation.. All other systems were reviewed and were negative Other vitals acceptable Review of Systems Review of Systems: All systems reviewed & are unremarkable except as noted in HPI and below (HPI) Exam Narrative: General: Pt is alert awake and in NAD Lungs/Chest: Trachea central Clear BS B/L, No crackles or wheezing. Cardiac: RRR. Normal S1 S2. No murmurs Circulation: Pedal pulses are intact and symmetrical. Abdomen: Normal bowel sounds. Mild tenderness in right upper quadrant and epigastric area Soft. ND. Extremities: No clubbing, cyanosis or edema. Warm : Talley in place Neurologic: Follows commands. Moves all 4 extremities PERRL AO x3 Skin: No Rash Objective Data Vital Signs Vital Signs: Vital Signs - 24 hr 07/15/23 11:00 07/15/23 12:00 07/15/23 12:00 Temperature Pulse Rate 57 L 57 L Respiratory Rate 17 Blood Pressure Pulse Oximetry 100 100 Oxygen Delivery Nasal Cannula Room Air Oxygen Flow Rate 2 Fraction of Inspired Oxygen 28 07/15/23 12:00 07/15/23 14:00 07/15/23 12:00 Temperature 37.4 C 37.4 C Pulse Rate 57 L 53 L 54 L Respiratory Rate 17 19 Blood Pressure 161/55 H 161/55 H Pulse Oximetry 100 100 Oxygen Delivery Oxygen Flow Rate Fraction of Inspired Oxygen 07/15/23 14:00 07/15/23 16:00 07/15/23 16:00 Temperature 37.3 C Pulse Rate 52 L 45 L 50 L Respiratory Rate 18 16 Blood Pressure 151/61 H Pulse Oximetry 99 99 Oxygen Delivery Room Air Oxygen Flow Rate Fraction of Inspired Oxygen 07/15/23 16:00 07/15/23 18:00 07/15/23 18:00 Temperature 37.3 C 37.7 C H Pulse Rat
[2023-07-16 15:09] LABS: Alanine Aminotransferase 274 U/L (6-35); Albumin Level 3.7 g/dL (3.5-5.1); Alkaline Phosphatase 60 U/L (38-126); Aspartate Amino Transferase 159 U/L (14-36); Bilirubin,Total 0.4 mg/dL (0.2-1.3)
[2023-07-16 15:14] LABS: Prothrombin Time 13.9 Seconds (11.1-14.7)
--- NOTE | 2023-07-16 18:02 | PM.IMPN ---
Progress Note: A&P Assessment and Plan (1) Acetaminophen overdose of undetermined intent: Qualifiers: Encounter type: initial encounter Qualified Code(s): T39.1X4A - Poisoning by 4-Aminophenol derivatives, undetermined, initial encounter Code(s): T39.1X4A - Poisoning by 4-Aminophenol derivatives, undetermined, initial encounter Status: Acute (2) Seizure: Code(s): R56.9 - Unspecified convulsions Status: Acute (3) Elevated LFTs: Code(s): R79.89 - Other specified abnormal findings of blood chemistry Status: Acute (4) Altered mental status: Qualifiers: Altered mental status type: coma Coma depth: [place] coma 3-8 Coma timing: in the field (EMT or ambulance) Qualified Code(s): R40.2431 - [place] coma scale score 3-8, in the field [EMT or ambulance] Code(s): R41.82 - Altered mental status, unspecified Status: Acute (5) Lactic acidosis: Code(s): E87.20 - Acidosis, unspecified Status: Acute (6) Hypertension: Code(s): I10 - Essential (primary) hypertension Status: Acute (7) Anxiety: Code(s): F41.9 - Anxiety disorder, unspecified Status: Acute Plan 07/16/2023: Patient successfully extubated She is undergoing IV N-acetyl cysteine for acetaminophen overdose as per poison control recommendations Patient may be downgraded to the floor once cleared by ICU Liver functions are slowly improving Lactic acidosis has resolved May need crisis intervention ? Patient seen and examined at bedside during my morning rounds ? Collaborated with patient's nurse at the bedside in detail and addressed all concerns ? Labs, electrolytes, radiology, investigations and test results reviewed ? Consult/Nursing/Ancilliary notes on the chart reviewed and appreciated ? Spoke with patient/family at the bedside and answered all the questions that they had Repeat labs in a.m. Electrolyte replacement as per protocol. Patient will be monitored very closely on the floor. Further recommendations as per the hospital course. 07/14/2023: The patient presented to the emergency department via EMS from home for evaluation after she was found in an altered state as detailed in HPI. Labs, imaging, EKG, and all reports were personally reviewed. Initial concerns were that she was perhaps postictal from a seizure however urine drug screen was positive for opioids and benzodiazepines, none of which she is prescribed. Tylenol level was toxic and she has been started on N-acetylcysteine and Poison Control recommendations are being followed. Eventually the patient was able to indicate to me that she took hydrocodone in attempts to harm herself earlier today. She will need a sitter when she is no longer sedated and on mechanical ventilation crisis will need to be consulted for placement on discharge. Lactic acid level was quite high, likely due to the overdose, as there is no indication to suggest underlying infection. She is being adequately fluid resuscitated. blood pressures have been stable if not a bit elevated. Her home medications will be reviewed and resumed as appropriate. Subjective Date/time seen: 07/16/23 18:02 Interval history: Patient seen and evaluated in the ICU during my morning rounds. Still receiving N-acetyl cystine for acetaminophen overdose. Review of Systems Review of Systems: She denies any chest pain, palpitation, fever rigor chills, nausea vomiting dizziness or loss of consciousness All systems reviewed & are unremarkable except as noted in HPI and below Exam Narrative: PHYSICAL EXAMINATION: Vital signs: Please see the chart General physical exam: Patient sitting in chair on the bedside, appears tired and fatigued Head/eyes: Atraumatic, EOMI, PERRLA ENT: Moist mucous membranes, nasal passages clear Neck: Supple, full range of motion, trachea midline CVS: S1 + S2, regular rate and rhythm, no murmurs Respiratory: Bilaterally
[2023-07-17] VITALS (7 sets, daily range): BP systolic 132–164; BP diastolic 61–103; PULSE 53–74; RESP 17–38; TEMP 36.6–37; O2SAT 95–100
[2023-07-17 03:58] LABS: Hematocrit 31.8 % (37.0-47.0); Hemoglobin 10.6 g/dL (12.0-15.0); Mean Corpuscular HGB Conc 33.3 g/dl (32-36); Mean Corpuscular Hemoglobin 31.8 pg (26-34); Mean Corpuscular Volume 95.5 fl (80-100); Mean Platelet Volume 9.6 fl (7.4-10.4); Platelet Count Result 141 k/mm3 (150-375); Red Blood Count 3.33 M/mm3 (4.2-5.4); Red Cell Distribution Width 12.3 % (11.5-14.5); White Blood Count 6.2 K/mm3 (4.5-10.0)
[2023-07-17 04:22] LABS: Alanine Aminotransferase 237 U/L (6-35); Albumin Level 3.5 g/dL (3.5-5.1); Alkaline Phosphatase 59 U/L (38-126); Anion Gap 5 mmol/L (8-16); Aspartate Amino Transferase 114 U/L (14-36); Bilirubin,Total 0.8 mg/dL (0.2-1.3); Blood Urea Nitrogen 11 mg/dL (7-17); Calcium 8.9 mg/dL (8.4-10.2); Carbon Dioxide 27 mmol/L (22-30); Chloride 107 mmol/L (98-107); Estimated CRCL calculation 76 ml/min; Estimated Glomerular Filt Rate > 60; Glucose 97 mg/dL (65-110); Phosphorus 3.5 mg/dL (2.5-4.5); Potassium 3.6 mmol/L (3.4-5.0); Sodium 139 mmol/L (137-145)
[2023-07-17] MEDS: ENOXAPARIN 40 MG/0.4 ML SYRINGE SUB-Q (08:56)
[2023-07-17] MEDS: cefTRIAXone 2 GM/NS 100 ML 2 GM/100 ML BAG IVPB (08:56)
[2023-07-17] MEDS: PANTOPRAZOLE SODIUM IV 40 MG VIAL IV PUSH (08:56)
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
--- NOTE | 2023-07-17 19:53 | PM.IMPN ---
Progress Note: A&P Assessment and Plan (1) Acetaminophen overdose of undetermined intent: Qualifiers: Encounter type: initial encounter Qualified Code(s): T39.1X4A - Poisoning by 4-Aminophenol derivatives, undetermined, initial encounter Code(s): T39.1X4A - Poisoning by 4-Aminophenol derivatives, undetermined, initial encounter Status: Acute (2) Seizure: Code(s): R56.9 - Unspecified convulsions Status: Acute (3) Elevated LFTs: Code(s): R79.89 - Other specified abnormal findings of blood chemistry Status: Acute (4) Altered mental status: Qualifiers: Altered mental status type: coma Coma depth: [place] coma 3-8 Coma timing: in the field (EMT or ambulance) Qualified Code(s): R40.2431 - [place] coma scale score 3-8, in the field [EMT or ambulance] Code(s): R41.82 - Altered mental status, unspecified Status: Acute (5) Lactic acidosis: Code(s): E87.20 - Acidosis, unspecified Status: Acute (6) Hypertension: Code(s): I10 - Essential (primary) hypertension Status: Acute (7) Anxiety: Code(s): F41.9 - Anxiety disorder, unspecified Status: Acute Plan 07/17/2023: Patient is slowly improving Liver functions are downtrending yet still elevated more than 3 times the baseline Follow-up liver functions closely She is off IV N-acetyl cysteine drip for acetaminophen overdose as per poison control recommendations Patient would need crisis intervention for DC planning once she is medically cleared ? Patient seen and examined at bedside during my morning rounds ? Collaborated with patient's nurse at the bedside in detail and addressed all concerns ? Labs, electrolytes, radiology, investigations and test results reviewed ? Consult/Nursing/Ancilliary notes on the chart reviewed and appreciated ? Spoke with patient/ at the bedside and answered all the questions that they had Repeat labs in a.m. Electrolyte replacement as per protocol. Patient will be monitored very closely on the floor. Further recommendations as per the hospital course. 07/16/2023: Patient successfully extubated She is undergoing IV N-acetyl cysteine for acetaminophen overdose as per poison control recommendations Patient may be downgraded to the floor once cleared by ICU Liver functions are slowly improving Lactic acidosis has resolved May need crisis intervention 07/14/2023: The patient presented to the emergency department via EMS from home for evaluation after she was found in an altered state as detailed in HPI. Labs, imaging, EKG, and all reports were personally reviewed. Initial concerns were that she was perhaps postictal from a seizure however urine drug screen was positive for opioids and benzodiazepines, none of which she is prescribed. Tylenol level was toxic and she has been started on N-acetylcysteine and Poison Control recommendations are being followed. Eventually the patient was able to indicate to me that she took hydrocodone in attempts to harm herself earlier today. She will need a sitter when she is no longer sedated and on mechanical ventilation crisis will need to be consulted for placement on discharge. Lactic acid level was quite high, likely due to the overdose, as there is no indication to suggest underlying infection. She is being adequately fluid resuscitated. blood pressures have been stable if not a bit elevated. Her home medications will be reviewed and resumed as appropriate. Subjective Date/time seen: 07/17/23 19:53 Interval history: Patient is feeling better. She wants to go home. She does not have suicidal ideation and her believes her medication, paroxetine, gave her suicidal thoughts. Review of Systems Review of Systems: She denies any chest pain, palpitation, fever rigor chills, nausea vomiting dizziness or loss of consciousness All systems reviewed & are unremarkable except as noted in
[2023-07-18] VITALS: PULSE 52
[2023-07-18 03:41] LABS: Hematocrit 33.1 % (37.0-47.0); Hemoglobin 10.8 g/dL (12.0-15.0); Mean Corpuscular HGB Conc 32.6 g/dl (32-36); Mean Corpuscular Hemoglobin 30.9 pg (26-34); Mean Corpuscular Volume 94.6 fl (80-100); Mean Platelet Volume 9.3 fl (7.4-10.4); Platelet Count Result 153 k/mm3 (150-375); Red Cell Distribution Width 12.2 % (11.5-14.5); White Blood Count 5.4 K/mm3 (4.5-10.0)
[2023-07-18 03:55] LABS: Alanine Aminotransferase 191 U/L (6-35); Albumin Level 3.8 g/dL (3.5-5.1); Alkaline Phosphatase 65 U/L (38-126); Anion Gap 5 mmol/L (8-16); Aspartate Amino Transferase 73 U/L (14-36); Bilirubin,Total 0.7 mg/dL (0.2-1.3); Blood Urea Nitrogen 11 mg/dL (7-17); Calcium 9.5 mg/dL (8.4-10.2); Carbon Dioxide 28 mmol/L (22-30); Chloride 106 mmol/L (98-107); Estimated CRCL calculation 79 ml/min; Estimated Glomerular Filt Rate > 60; Glucose 97 mg/dL (65-110); Phosphorus 4.1 mg/dL (2.5-4.5); Potassium 3.9 mmol/L (3.4-5.0); Sodium 139 mmol/L (137-145)
[2023-07-18 04:00] VITALS: PULSE 51
[2023-07-18 08:00] VITALS: BP 142/77; PULSE 57; PULSE 67; RESP 12; TEMP 37.1; O2SAT 99
[2023-07-18] MEDS: PANTOPRAZOLE SODIUM IV 40 MG VIAL IV PUSH (08:12)
[2023-07-18] MEDS: ENOXAPARIN 40 MG/0.4 ML SYRINGE SUB-Q (08:12)
[2023-07-18 12:00] VITALS: PULSE 68
--- NOTE | 2023-07-18 12:36 | PM.IMPN ---
Progress Note: A&P Assessment and Plan (1) Acetaminophen overdose of undetermined intent: Qualifiers: Encounter type: initial encounter Qualified Code(s): T39.1X4A - Poisoning by 4-Aminophenol derivatives, undetermined, initial encounter Code(s): T39.1X4A - Poisoning by 4-Aminophenol derivatives, undetermined, initial encounter Status: Acute (2) Seizure: Code(s): R56.9 - Unspecified convulsions Status: Acute (3) Elevated LFTs: Code(s): R79.89 - Other specified abnormal findings of blood chemistry Status: Acute (4) Altered mental status: Qualifiers: Altered mental status type: coma Coma depth: [place] coma 3-8 Coma timing: in the field (EMT or ambulance) Qualified Code(s): R40.2431 - [place] coma scale score 3-8, in the field [EMT or ambulance] Code(s): R41.82 - Altered mental status, unspecified Status: Acute (5) Lactic acidosis: Code(s): E87.20 - Acidosis, unspecified Status: Acute (6) Hypertension: Code(s): I10 - Essential (primary) hypertension Status: Acute (7) Anxiety: Code(s): F41.9 - Anxiety disorder, unspecified Status: Acute Plan 07/18/2023: Liver functions continue to downtrend AST and ALT need to be within 3 times normal for the patient to be medically cleared for crisis intervention AST has down trended from 389 to 73 which is within acceptable limit ALT has downgraded from 403-191 which will be followed closely as it is still above 3 times normal limit of 35 Will consult crisis intervention likely in the next 24-48 hours once liver function approach medically acceptable limits Continue with current management and one-to-one sitter ? Patient seen and examined at bedside during my morning rounds ? Collaborated with patient's nurse at the bedside in detail and addressed all concerns ? Labs, electrolytes, radiology, investigations and test results reviewed ? Consult/Nursing/Ancilliary notes on the chart reviewed and appreciated ? Spoke with patient at the bedside and answered all the questions that she had Repeat labs in a.m. Electrolyte replacement as per protocol. Patient will be monitored very closely on the floor. Further recommendations as per the hospital course. I am signing off. Patient's medical care will be taken over by my covering hospitalist attending in am. 07/17/2023: Patient is slowly improving Liver functions are downtrending yet still elevated more than 3 times the baseline Follow-up liver functions closely She is off IV N-acetyl cysteine drip for acetaminophen overdose as per poison control recommendations Patient would need crisis intervention for DC planning once she is medically cleared 07/16/2023: Patient successfully extubated She is undergoing IV N-acetyl cysteine for acetaminophen overdose as per poison control recommendations Patient may be downgraded to the floor once cleared by ICU Liver functions are slowly improving Lactic acidosis has resolved May need crisis intervention 07/15/2023: Patient seen and evaluated by sodium chlorite operator. No hospitalist visit. 07/14/2023: The patient presented to the emergency department via EMS from home for evaluation after she was found in an altered state as detailed in HPI. Labs, imaging, EKG, and all reports were personally reviewed. Initial concerns were that she was perhaps postictal from a seizure however urine drug screen was positive for opioids and benzodiazepines, none of which she is prescribed. Tylenol level was toxic and she has been started on N-acetylcysteine and Poison Control recommendations are being followed. Eventually the patient was able to indicate to me that she took hydrocodone in attempts to harm herself earlier today. She will need a sitter when she is no longer sedated and on mechanical ventilation crisis will need to be consulted for placement on discharge. Lactic acid level was quite high, likely
[2023-07-18 16:00] VITALS: BP 136/77; PULSE 51; RESP 24; TEMP 36.9; O2SAT 99
[2023-07-18 20:00] VITALS: PULSE 52
[2023-07-19] VITALS (7 sets, daily range): BP systolic 125–136; BP diastolic 55–74; PULSE 51–75; RESP 14–19; TEMP 36.4–36.7; O2SAT 96–100
--- NOTE | 2023-07-19 00:55 | PC.NURSE ---
This patient, Anju Martinez, was transferred to [facility] on 07/19/23 at 0055. Personal belongings sent with patient and placed in locked cabinet. Report given to KRANTHI Scott. Appropriate documentation sent with patient. Patient's sitter accompanied patient to room.
[2023-07-19 05:49] LABS: Hematocrit 33.9 % (37.0-47.0); Hemoglobin 11.2 g/dL (12.0-15.0); Mean Corpuscular Hemoglobin 31.4 pg (26-34); Mean Platelet Volume 9.7 fl (7.4-10.4); Platelet Count Result 180 k/mm3 (150-375); Red Blood Count 3.57 M/mm3 (4.2-5.4)
[2023-07-19 06:07] LABS: Alanine Aminotransferase 153 U/L (6-35); Albumin Level 3.8 g/dL (3.5-5.1); Alkaline Phosphatase 66 U/L (38-126); Anion Gap 6 mmol/L (8-16); Aspartate Amino Transferase 54 U/L (14-36); Bilirubin,Total 0.7 mg/dL (0.2-1.3); Blood Urea Nitrogen 12 mg/dL (7-17); Calcium 9.4 mg/dL (8.4-10.2); Carbon Dioxide 29 mmol/L (22-30); Chloride 105 mmol/L (98-107); Estimated CRCL calculation 78 ml/min; Estimated Glomerular Filt Rate > 60; Glucose 90 mg/dL (65-110); Magnesium 2.1 mg/dL (1.6-2.3); Phosphorus 4.1 mg/dL (2.5-4.5); Potassium 3.9 mmol/L (3.4-5.0); Sodium 140 mmol/L (137-145)
[2023-07-19] MEDS: PANTOPRAZOLE SODIUM IV 40 MG VIAL IV PUSH (08:28)
[2023-07-19] MEDS: ENOXAPARIN 40 MG/0.4 ML SYRINGE SUB-Q (08:28)
--- NOTE | 2023-07-19 12:00 | PM.DS ---
DS: Admitting Diagnosis Discharge Date 07/19/2023 Admitting Diagnosis Acetaminophen overdose DS: Discharge Diagnosis Discharge Diagnosis (1) Acetaminophen overdose of undetermined intent: Qualifiers: Encounter type: initial encounter Qualified Code(s): T39.1X4A - Poisoning by 4-Aminophenol derivatives, undetermined, initial encounter Code(s): T39.1X4A - Poisoning by 4-Aminophenol derivatives, undetermined, initial encounter Status: Acute (2) Seizure: Code(s): R56.9 - Unspecified convulsions Status: Acute (3) Elevated LFTs: Code(s): R79.89 - Other specified abnormal findings of blood chemistry Status: Acute (4) Altered mental status: Qualifiers: Altered mental status type: coma Coma depth: [place] coma 3-8 Coma timing: in the field (EMT or ambulance) Qualified Code(s): R40.2431 - [place] coma scale score 3-8, in the field [EMT or ambulance] Code(s): R41.82 - Altered mental status, unspecified Status: Acute (5) Lactic acidosis: Code(s): E87.20 - Acidosis, unspecified Status: Acute (6) Hypertension: Code(s): I10 - Essential (primary) hypertension Status: Acute (7) Anxiety: Code(s): F41.9 - Anxiety disorder, unspecified Status: Acute Plan 07/18/2023: Liver functions continue to downtrend AST and ALT need to be within 3 times normal for the patient to be medically cleared for crisis intervention AST has down trended from 389 to 73 which is within acceptable limit ALT has downgraded from 403-191 which will be followed closely as it is still above 3 times normal limit of 35 Will consult crisis intervention likely in the next 24-48 hours once liver function approach medically acceptable limits Continue with current management and one-to-one sitter ? Patient seen and examined at bedside during my morning rounds ? Collaborated with patient's nurse at the bedside in detail and addressed all concerns ? Labs, electrolytes, radiology, investigations and test results reviewed ? Consult/Nursing/Ancilliary notes on the chart reviewed and appreciated ? Spoke with patient at the bedside and answered all the questions that she had Repeat labs in a.m. Electrolyte replacement as per protocol. Patient will be monitored very closely on the floor. Further recommendations as per the hospital course. I am signing off. Patient's medical care will be taken over by my covering hospitalist attending in am. 07/17/2023: Patient is slowly improving Liver functions are downtrending yet still elevated more than 3 times the baseline Follow-up liver functions closely She is off IV N-acetyl cysteine drip for acetaminophen overdose as per poison control recommendations Patient would need crisis intervention for DC planning once she is medically cleared 07/16/2023: Patient successfully extubated She is undergoing IV N-acetyl cysteine for acetaminophen overdose as per poison control recommendations Patient may be downgraded to the floor once cleared by ICU Liver functions are slowly improving Lactic acidosis has resolved May need crisis intervention 07/15/2023: Patient seen and evaluated by geoint analyst. No hospitalist visit. 07/14/2023: The patient presented to the emergency department via EMS from home for evaluation after she was found in an altered state as detailed in HPI. Labs, imaging, EKG, and all reports were personally reviewed. Initial concerns were that she was perhaps postictal from a seizure however urine drug screen was positive for opioids and benzodiazepines, none of which she is prescribed. Tylenol level was toxic and she has been started on N-acetylcysteine and Poison Control recommendations are being followed. Eventually the patient was able to indicate to me that she took hydrocodone in attempts to harm herself earlier today. She will need a sitter when she is no longer sedated and on mechanical ventilation
== END 2023-07-19 14:00 | disposition other institution (70) | DRG 918 ==
LOC: ANHED 15:27 → ANHICU 18:32 → ANH2MED 07-19 11:59 → ANHICU 07-22 10:51
PROVIDERS: Internal Medicine; Physician Assistant; Admitting Provider Family Medicine; Emergency Provider Student in an Organized Health Care Education/Training Program; PCP Internal Medicine; Visit Provider Internal Medicine
DX: T39.1X4A Poisoning by 4-Aminophenol derivatives, undetermined, initial encounter (principal); E87.21 Acute metabolic acidosis; G40.89 Other seizures; F41.9 Anxiety disorder, unspecified; I10 Essential (primary) hypertension; G50.8 Other disorders of trigeminal nerve; R41.82 Altered mental status, unspecified
CPT/HCPCS: 36415; 36600; 70450; 71045; 76705; 80048; 80053; 80074; 80076; 80307; 81001; 82248; 82375; 82550; 82805; 82948; 83050; 83605; 83690; 83735; 84100; 84443; 84484; 85025; 85027; 85610; 85730; 87040; 87086; 93005; 94002; 94003; 96361; 96374; 99285; A9270; C9113; J0132; J0696; J1650; J2250; J2310; J2704; J3475; J7030; J7060; J7070